=== PATIENT | female | born 1945 | race Caucasian/White ===

== ENCOUNTER 2017-05-23 07:28 | Inpatient (IN) | payer OTHER ==
[2017-04-25 13:03] VITALS: Ht 167.6 cm; Wt 82.8 kg
--- NOTE | 2017-04-25 13:42 | PAT Medication Instructions ---
Service Date Apr 25, 2017. Current Home Medication List Albuterol Hfa (Ventolin Hfa), Unknown Dose INH UD PRN for PRN Fluticasone Propionate (Flovent Hfa), Unknown Dose INH UD PRN for PRN Fluticasone Propionate (Nasal) (Allergy Nasal [place] [address] Ho), 1 SPRAY DOMENIC UD PRN for PRN Ibuprofen (Motrin), 600 MG PO UD PRN for Pain Ibuprofen-Diphenhydramine Citr (Ibuprofen Pm), 2 TAB PO HS Montelukast Sodium (Montelukast Sodium), 1 TAB PO HS Nasal Wash (Alkalol), 1 DOSE NA UD Medication Instructions For Your Scheduled Surgery -Follow your surgeon's instructions for: Ibuprofen (Motrin), 600 MG PO UD PRN for Pain Ibuprofen-Diphenhydramine Citr (Ibuprofen Pm), 2 TAB PO HS -Continue as directed: Nasal Wash (Alkalol), 1 DOSE NA UD - Take the following medications the morning of surgery with a sip of water: Albuterol Hfa (Ventolin Hfa), Unknown Dose INH UD PRN for PRN (if needed, and bring it with you to the hospital) Fluticasone Propionate (Flovent Hfa), Unknown Dose INH UD PRN for PRN (if needed ) Fluticasone Propionate (Nasal) (Allergy Nasal [place] [facility] Ho), 1 SPRAY DOMENIC UD PRN for PRN (if needed) - Take the following medications as scheduled the night before surgery: Montelukast Sodium (Montelukast Sodium), 1 TAB PO HS Albuterol Hfa (Ventolin Hfa), Unknown Dose INH UD PRN for PRN (if needed) Fluticasone Propionate (Flovent Hfa), Unknown Dose INH UD PRN for PRN (if needed ) Fluticasone Propionate (Nasal) (Allergy Nasal [place] [facility] Ho), 1 SPRAY DOMENIC UD PRN for PRN (if needed) If you have any questions please call us at [phone] or [phone] or [phone]
--- NOTE | 2017-04-25 14:44 | DIAGNOSTIC IMAGING REPORT ---
CHEST 2 VIEWS ROUTINE CLINICAL HISTORY: PAT preoperative evaluation COMPARISON STUDY: No previous studies for comparison. FINDINGS: The bones soft tissues and hemidiaphragms are normal. The cardiomediastinal silhouette is normal. The lungs are clear. The pulmonary vasculature is normal. IMPRESSION: Negative chest. The above report was generated using voice recognition software. It may contain grammatical, syntax or spelling errors. Electronically signed by: Romero Stewart M.D. 04/25/2017 2:43 PM Dictated Date/Time: 04/25/2017 2:42 PM
[2017-04-25 14:53] LABS: BASO % 0.2 %; BASO ABS # 0.01 K/uL (0-0.2); EOS % 3.1 %; EOS ABS # 0.15 K/uL (0-0.5); HEMOGLOBIN 14.2 g/dL (12.0-16.0); LYMPH % 26.1 %; LYMPH ABS # 1.25 K/uL (1.2-3.4); MEAN CELL VOLUME 92.9 fL (80-100); MEAN CORPUSCULAR HEMOGLOBIN 31.4 pg (25-34); MEAN CORPUSCULAR HGB CONC 33.8 g/dl (32-36); MEAN PLATELET VOLUME 10.9 fL (7.4-10.4); MONO % 5.8 %; MONO ABS # 0.28 K/uL (0.11-0.59); NEUT % 64.8 %; PLATELET COUNT 210 K/uL (130-400); RED CELL DISTRIBUTION WIDTH CV 13.2 % (11.5-14.5); RED CELL DISTRIBUTION WIDTH SD 44.4 fL (36.4-46.3); WHITE BLOOD COUNT 4.79 K/uL (4.8-10.8)
[2017-04-25 15:00] LABS: ALBUMIN 3.7 gm/dl (3.4-5.0); CALCIUM 9.9 mg/dl (8.5-10.1); CREATININE 0.54 mg/dl (0.60-1.20); POTASSIUM 4.2 mmol/L (3.5-5.1)
[2017-04-25 15:05] LABS: PTT PATIENT 27.5 SECONDS (21.0-31.0)
[2017-04-26 06:19] LABS: HEMOGLOBIN A1C 5.6 % (4.5-5.6)
--- NOTE | 2017-04-26 13:15 | HISTORY & PHYSICAL EXAMINATION ---
DATE OF ADMISSION: 05/23/2017 CHIEF COMPLAINT: Right knee pain. HISTORY OF PRESENT ILLNESS: Barbara is a 71-year-old female with a 12-year history of right knee pain. The patient rates her pain at 9/10. She has pain with her daily activities. She has limited standing and walking tolerance. Pain is worse with weightbearing. The patient has had injections, bracing, and NSAIDs without relief. She has failed conservative treatment and is scheduled for right knee replacement. PAST MEDICAL HISTORY: Asthma and sleep apnea. She denies heart disease, diabetes or DVT. PAST SURGICAL HISTORY: Hysterectomy and D&C. SOCIAL HISTORY: She denies alcohol or tobacco use. She lives in a 2-story home. She is and works as a hairdresser. FAMILY HISTORY: Negative for DVT. MEDICATIONS: ProAir HFA 90 mcg 2 puffs p.r.n., ibuprofen 200 mg p.r.n., Flovent HFA 44 mcg 2 puffs b.i.d., montelukast 10 mg daily, and fluticasone 50 mg. ALLERGIES: PENICILLIN CAUSED HIVES AT AGE 23. REVIEW OF SYSTEMS: See HPI. Also positive for chronic sinusitis. Otherwise negative. PHYSICAL EXAMINATION: VITAL SIGNS: Height 5 feet 6 inches, weight 184 pounds, and BMI is 30. GENERAL: This is a well-developed and well-nourished female who is alert and oriented x3. Mood and affect are appropriate. HEENT: Normocephalic and atraumatic. Mucous membranes are moist and intact. NECK: Supple without lymphadenopathy. HEART: Regular rate and rhythm without murmurs, rubs or gallops. LUNGS: Clear to auscultation without wheezes or rhonchi. ABDOMEN: Soft and nontender. Bowel sounds are equal and active. EXTREMITIES: No ecchymosis, redness or warmth. Thigh and calf are soft and nontender. She has a valgus deformity. Range of motion is from 0-110 degrees with no laxity. She has +1 edema. She has moderate effusion. She is neurovascularly intact. X-RAY EXAMINATION: AP and lateral views show joint space narrowing and osteophyte formation. IMPRESSION: Degenerative joint disease, right knee. PLAN: The patient will be admitted for a right total knee arthroplasty. We will plan on aspirin for DVT prophylaxis. She will likely have [facility] for home physical therapy. PCP is Dr. Dale in [place].
[~2017-05-23] VITALS: Ht 167.6 cm; Wt 82.8 kg
[2017-05-23] VITALS (9 sets, daily range): BP systolic 105–137; BP diastolic 65–88; PULSE 75–89; TEMP 36.4–36.8; O2SAT 93–99
[2017-05-23] MEDS: TRANEXAMIC ACID INJ 1,000 MG x 2 Bags IV SCH ×4 (06:30→10:01)
--- NOTE | 2017-05-23 06:55 | History & Physical Bridge Note ---
H&P Re-Evaluation Bridge Note: I have examined the patient, reviewed the History & Physical and in the interval since the performance of the History & Physical I have noted the following changes of clinical significance: No changes noted
[~2017-05-23 07:28] MED LIST: ACETAMINOPHEN 500 MG TAB PO SCH; BUPIVACAINE 0.25% 30 ML VIAL ONE; BUPIVACAINE 0.5 % 5 MG/1 ML PF 10ML VIAL ONE; CeleBREX 200 MG CAP PO SCH; DEXAMETHASONE 4 MG TAB PO SCH; FAMOTIDINE 20 MG TAB PO SCH; FLUT50SP45 NAE; FLVHFA110 INH; GABAPENTIN 300 MG CAP PO SCH; IBUP1TAB55 PO; IBUP600T44 PO; LACTATED RINGER'S 1000ML 1,000 ML IV SCH; LACTATED RINGER'S 1000ML 500 ML IV SCH; METOCLOPRAMIDE HCL 10 MG TAB PO SCH; MONT1TAB5 PO; ROPIVACAINE 5MG/ML 30 ML 150 MG, BUPIVACAINE 0.5% MPF INJ 30 ML, EpINEphrine HCL INJ 0.... INFIL SCH; VNTHFA/IN INH; [UNRECOGNIZED DRUG - CODE]
[2017-05-23] MEDS ORDERED: MIDAZOLAM HCL 1 MG/ML 2ML VIAL ONE (08:24)
[2017-05-23] MEDS ORDERED: BACITRACIN 50000 UNIT VIAL ONE (08:58)
[2017-05-23] MEDS ORDERED: POVIDONE-IODINE OP SOLN 30 ML BTL ONE (08:58)
[2017-05-23] MEDS ORDERED: ORTHO JOINT ANESTHETIC ONE (08:58)
[2017-05-23] MEDS ORDERED: NURSING VERBAL MED ORDER STA (09:31)
[2017-05-23] MEDS ORDERED: CLINDAMYCIN 600 MG/54 ML D5W IV ONE (09:32)
[2017-05-23] MEDS ORDERED: FENTANYL CITRATE INJ 50 MCG/1 ML 2 ML VIAL IV PRN (09:45)
[2017-05-23] MEDS ORDERED: ONDANSETRON INJ 2 MG/ML 2 ML VIAL IV PRN ×2 (09:45→12:15)
[2017-05-23] MEDS ORDERED: EpHEDrine SULFATE INJ 50 MG/ML AMP IV PRN (09:45)
[2017-05-23] MEDS ORDERED: ATROPINE SULFATE 0.1 MG/ML 5ML SYR IV PRN (09:45)
[2017-05-23] MEDS ORDERED: PROPOFOL IV EMULSION 10 MG/ML 20 ML VIAL IV ONE (10:31)
[2017-05-23] MEDS ORDERED: LIDOCAINE HCL 2% 2 ML VIAL (20MG/ML) ONE (10:33)
--- NOTE | 2017-05-23 11:19 | [facility] Post Operative Brief Note ---
Immediate Operative Summary Operative Date May 23, 2017. Pre-Operative Diagnosis Right knee degenerative joint disease Post-Operative Diagnosis Right knee degenerative joint disease Procedure(s) Performed Right total knee arthroplasty Surgeon Dr. Andre Care Director Surgeon(s) Romero Murphy PA-C Estimated Blood Loss 5ml Findings Consistent with Post-Op Diagnosis Specimens A. Right knee bone and tissue Anesthesia Type MAC Spinal Regional Complication(s) none Disposition Disposition: Recovery Room / PACU
--- NOTE | 2017-05-23 11:21 | [facility] Operative Report ---
Operative Report Operative Date May 23, 2017. Pre-Operative Diagnosis Right knee degenerative joint disease Post-Operative Diagnosis Right knee degenerative joint disease Procedure(s) Performed Right total knee arthroplasty utilizing [employer] journey to patient-matched total knee arthroplasty size 5 femur 5 tibia 13 Teresa [address] Andre Telecommunications Clerk Surgeon(s) Romero Murphy PA-C Estimated Blood Loss 5ml Findings Patient presents with severe end-stage DJD varus alignment subchondral cystic changes sclerosus marginal osteophytes large loss to conservative therapy including physical therapy anti-inflammatories Roto-Rest activity modification viscus supplementation corticosteroid injections presents for total knee arthroplasty Specimens A. Right knee bone and tissue Anesthesia Type MAC Spinal Regional Complication(s) none Disposition Recovery Room / PACU Indications Intraoperative findings were consistent with subchondral cystic changes sclerosus marginal osteophytes bone the bone eburnated bone with bone the bone varus alignment. Description of Procedure After proper prepping and draping of the Right lower extremity anterior midline incision was made over the region of the extensor extensor mechanism after meticulous hemostasis was obtained and maintained in subcutaneous tissues a medial parapatellar incision was made The patella was subluxed lateralward the medial lateral gutter were cleaned from any hypertrophic synovitis and scar tissue of the distal femoral block was placed and the distal femoral osteotomy cut was made subsequently the chamfers anterior and posterior osteotomy cuts were made utilizing the 4-in-1 block the tibia was subsequently subluxed anteriorward medial and ateral meniscal remnants were excised in their entirety remnants of the anterior and posterior cruciate ligaments were excised in their entirety excellent exposure of the proximal tibia was obtained the tibial osteotomy guide was placed on the proximal tibial osteotomy cut was made once again the knee was irrigated with copious amounts of sterile saline solution the patella was subsequently everted lateralward thickened scar tissue around the patella was removed the patella was subsequently cut utilizing a freehand technique and was drilled prepared for final preparation and placement of patella socially flexion-extension gaps were checked and the equal and symmetric trials were placed to the appropriate femoral and tibial trials with poly-spacer being placed for equal flexion and extension gaps and full range of motion including extension to 0 and flexion to 140 the trial components after having been taken to recovery range of motion was subsequently removed meticulous hemostasis was obtained and maintained subsequently a knee block injection of joint cocktail including ropivacaine 0.5% 150 mg. Bupivacaine 0.5 % epinephrine 1-200,030 mL's toradol 30 mg dexamethasone 4 mg ketamine 10 mg clonidine 100 micrograms normal saline solution 30 mg was infiltrated into the soft tissues of the posterior knee medial lateral gutters and periosteal synovium special attention was paid to protect neurovascular structures at all times subsequently trial components having been removed the knee was irrigated with sterile saline solution. debris was removed the proximal tibia was subsequently prepared and was made ready for the placement of the tibial component tibial component was also cemented and tamped into position the femoral component was subsequently placed and cemented in the position the patellar component was subsequently cemented in position because hemostasis once again obtained and maintained wound having been thoroughly irrigated with debridement and debridement lavage was performed as well as a medial parapatellar incision closed with #1 Vicryl in interrupted fashion subcutaneous was closed with #2 Vicryl skin was closed with skin clips. PA-C was necessary for prepping and drapping as well as wound closure of deep fascia Sub cutaneous tissue and skin and was necessary for the case. A sterile compressive dressing was placed patient was taken to recovery in stable condition of report dictated by Thai I attest to the content of the Intraoperative Record and any orders documented therein. Any exceptions are noted below. I attest to the content of the Intraoperative Record and any orders documented therein. Any exceptions are noted below.
[2017-05-23] MEDS ORDERED: KETOROLAC TROMETHAMINE 15 MG/ML VIAL IV. PRN (12:15)
[2017-05-23] MEDS ORDERED: ALUMINUM/MAGNESIUM/SIMETH (MAALOX MAX) 30 ML UDC PO PRN (12:15)
[2017-05-23] MEDS ORDERED: BISACODYL 10 MG SUPP PR PRN (12:15)
[2017-05-23] MEDS ORDERED: ZOLPIDEM TARTRATE 5 MG TAB PO PRN (12:15)
[2017-05-23] MEDS ORDERED: MoRPHine SULFATE 2 MG/ML CARP IV PRN (12:15)
[2017-05-23] MEDS ORDERED: MAGNESIUM HYDROXIDE SUSP 30 ML UDC PO PRN (12:15)
[2017-05-23] MEDS ORDERED: SOD PHOSPHATE/SOD BIPHOSPHATE ENEMA 132 ML BTL PR PRN (12:15)
--- NOTE | 2017-05-23 12:34 | Anesthesiology Progress Note ---
Anesthesia Post Op Note Date & Time May 23, 2017 at 12:33 Vital Signs Pain Intensity: 0 Vital Signs Past 12 Hours Date Time Temp Pulse Resp B/P (MAP) Pulse Ox O2 Delivery O2 Flow Rate FiO2 05/23/17 12:25 36.6 82 16 120/80 96 Nasal Cannula 2 05/23/17 12:15 77 16 106/77 96 Nasal Cannula 2 05/23/17 12:05 87 16 111/74 98 Oxymask 10 05/23/17 11:59 37.0 87 16 106/73 97 Oxymask 10 05/23/17 09:12 36.5 83 18 137/88 96 Room Air Notes Mental Status: alert / awake / arousable, participated in evaluation Pt Amnestic to Procedure: Yes Nausea / Vomiting: adequately controlled Pain: adequately controlled Airway Patency, RR, SpO2: stable & adequate BP & HR: stable & adequate Hydration State: stable & adequate Neuraxial Anesthesia: was administered, sensory block is resolving Anesthetic Complications: no major complications apparent
--- NOTE | 2017-05-23 12:49 | DIAGNOSTIC IMAGING REPORT ---
R KNEE 1 OR 2 VIEWS ROUTINE CLINICAL HISTORY: AP/LATERAL IN PACU RIGHT KNEE knee arthroplasty COMPARISON: None. DISCUSSION: Anatomic alignment status post total right knee arthroplasty. Good contact between prosthetic and underlying bone. Expected soft tissue postoperative change. IMPRESSION: Anatomic alignment status post total right knee arthroplasty. The above report was generated using voice recognition software. It may contain grammatical, syntax or spelling errors. Electronically signed by: Romero Stewart M.D. 05/23/2017 12:48 PM Dictated Date/Time: 05/23/2017 12:47 PM
[2017-05-23] MEDS ORDERED: MoRPHine SULFATE 4 MG/ML 1 ML CARP\\VIAL IV PRN (13:15)
[2017-05-23] MEDS ORDERED: MoRPHine SULFATE 10 MG/ML CARP/VIAL IV PRN (13:15)
[2017-05-23] MEDS ORDERED: FLUTICASONE PROPIONATE NA SPR 16 GM BTL NAE PRN (13:30)
[2017-05-23] MEDS: D5W AND 1/2NSS + 20MEQ KCL 1,000 ML IV SCH (15:59)
[2017-05-23] MEDS: ACETAMINOPHEN 500 MG TAB PO SCH (17:04)
[2017-05-23] MEDS: CLINDAMYCIN IV 600 MG in DEXTROSE 5% 50ML 50 ML IV SCH (17:34)
[2017-05-23] MEDS: SENNA 8.6 MG TAB PO SCH (21:19)
[2017-05-23] MEDS: MONTELUKAST SOD 10 MG TAB PO SCH (21:20)
[2017-05-23] MEDS: ASPIRIN 81 MG ECTAB PO SCH (21:20)
[2017-05-23] MEDS: FLUTICASONE HFA 110MCG INHALER INH SCH ×2 (21:21→21:23)
[2017-05-23] MEDS: DOCUSATE SODIUM 100 MG CAP PO SCH (21:21)
[2017-05-24] MEDS: ACETAMINOPHEN 500 MG TAB PO SCH ×3 (00:27→18:20)
[2017-05-24] MEDS: D5W AND 1/2NSS + 20MEQ KCL 1,000 ML IV SCH ×2 (02:36→09:30)
[2017-05-24] MEDS: CLINDAMYCIN IV 600 MG in DEXTROSE 5% 50ML 50 ML IV SCH (02:44)
[2017-05-24 03:28] VITALS: BP 106/67; PULSE 71; TEMP 36.9; O2SAT 94
[2017-05-24 05:55] LABS: HEMATOCRIT 36.5 % (37-47); HEMOGLOBIN 12.2 g/dL (12.0-16.0); MEAN CELL VOLUME 91.9 fL (80-100); MEAN CORPUSCULAR HEMOGLOBIN 30.7 pg (25-34); MEAN CORPUSCULAR HGB CONC 33.4 g/dl (32-36); MEAN PLATELET VOLUME 10.1 fL (7.4-10.4); PLATELET COUNT 186 K/uL (130-400); RED CELL DISTRIBUTION WIDTH SD 43.5 fL (36.4-46.3); WHITE BLOOD COUNT 14.36 K/uL (4.8-10.8)
[2017-05-24 06:08] LABS: INR 1.1 (0.9-1.1)
[2017-05-24 06:46] LABS: CALCIUM 9.1 mg/dl (8.5-10.1); CREATININE 0.62 mg/dl (0.60-1.20); POTASSIUM 4.4 mmol/L (3.5-5.1)
[2017-05-24 07:37] VITALS: BP 128/85; PULSE 91; TEMP 36.8; O2SAT 94
[2017-05-24] MEDS: MULTIVITAMIN TAB PO SCH (07:54)
[2017-05-24] MEDS: PANTOprazole SOD 40 MG TAB PO SCH (07:54)
[2017-05-24] MEDS: ASPIRIN 81 MG ECTAB PO SCH ×2 (07:55→21:00)
[2017-05-24] MEDS: DOCUSATE SODIUM 100 MG CAP PO SCH ×2 (07:55→21:00)
[2017-05-24] MEDS: TRAMADOL HCL 50 MG TAB PO PRN ×2 (07:56→13:55)
--- NOTE | 2017-05-24 08:15 | Orthopedic Progress Note ---
Orthopedic Progress Note Date of Service May 24, 2017. Subjective Post OP Day: 1 Reports: feeling well, Denies: chest pain, SOB, nausea / vomiting, light headedness, calf pain Objective calves soft nontender, N/V intact, capillary refill less than 2 sec., dressing C /D/I, A&O x3, toes mobile, hemovac drainage (185/125CC PER SHIFT) Date Time Temp Pulse Resp B/P (MAP) Pulse Ox O2 Delivery O2 Flow Rate FiO2 05/24/17 07:37 36.8 91 18 128/85 (99) 94 Room Air 05/24/17 03:28 36.9 71 16 106/67 (80) 94 Room Air 05/23/17 23:46 36.7 77 16 108/71 (83) 93 Room Air 05/23/17 19:10 Room Air 05/23/17 19:05 36.8 89 18 105/65 (78) 93 Room Air 05/23/17 16:04 36.4 88 18 118/77 (91) 95 Nasal Cannula 3.0 05/23/17 15:02 36.4 86 18 113/76 (88) 95 Nasal Cannula 3.0 05/23/17 14:50 Nasal Cannula 2.0 05/23/17 13:46 36.7 76 18 108/74 (85) 95 Nasal Cannula 3.0 05/23/17 13:17 75 16 109/77 (88) 96 3.0 05/23/17 12:54 96 Nasal Cannula 2.0 05/23/17 12:51 36.6 85 17 116/77 (90) 97 Nasal Cannula 2.0 05/23/17 12:50 99 Nasal Cannula 2.0 05/23/17 12:35 36.6 82 16 110/77 96 Nasal Cannula 2 05/23/17 12:25 36.6 82 16 120/80 96 Nasal Cannula 2 05/23/17 12:15 77 16 106/77 96 Nasal Cannula 2 05/23/17 12:05 87 16 111/74 98 Oxymask 10 05/23/17 11:59 37.0 87 16 106/73 97 Oxymask 10 05/23/17 09:12 36.5 83 18 137/88 96 Room Air Laboratory Results 24 Hours: Test 05/24/17 05:39 Hematocrit 36.5 % Hemoglobin 12.2 g/dL Prothromb Time International Ratio 1.1 Prothrombin Time 11.1 SECONDS Assessment & Plan Assessment: PT/OT DVT PROPH- ASA 81MG BID PAIN MANAGEMENT DC PLANNING- LIKELY DC WITH HOME PT TOMORROW.
--- NOTE | 2017-05-24 10:24 | Anesthesiology Progress Note ---
Anesthesia Post Op Note Date & Time May 24, 2017 at 10:24 Vital Signs Vital Signs Past 12 Hours Date Time Temp Pulse Resp B/P (MAP) Pulse Ox O2 Delivery O2 Flow Rate FiO2 05/24/17 07:37 36.8 91 18 128/85 (99) 94 Room Air 05/24/17 07:35 Room Air 05/24/17 03:28 36.9 71 16 106/67 (80) 94 Room Air 05/23/17 23:46 36.7 77 16 108/71 (83) 93 Room Air Notes Mental Status: alert / awake / arousable, participated in evaluation Pt Amnestic to Procedure: Yes Nausea / Vomiting: adequately controlled Pain: adequately controlled Airway Patency, RR, SpO2: stable & adequate BP & HR: stable & adequate Hydration State: stable & adequate Neuraxial Anesthesia: sensory block resolved Anesthetic Complications: no major complications apparent
[2017-05-24 15:35] VITALS: BP 105/68; PULSE 80; TEMP 36.4; O2SAT 97
[2017-05-24] MEDS: OXYCODONE HCL IR 5 MG TAB (IMMEDIATE RELEASE) PO PRN ×2 (16:12→20:55)
--- NOTE | 2017-05-24 17:04 | Discharge Instructions ---
Discharge Instructions Date of Service May 24, 2017. Admission Reason for Admission: Right Knee Osteoarthritis Discharge Discharge Diagnosis / Problem: right total knee replacement Discharge Goals Goal(s): Decrease discomfort, Improve function, Increase independence Activity Recommendations Activity Limitations: as noted below Weightbearing Status: Right weightbearing (as tolerated) . Instructions / Follow-Up Instructions / Follow-Up ACTIVITY RECOMMENDATIONS: SELF CARE INSTRUCTIONS AFTER TOTAL KNEE REPLACEMENT A. You may need to continue a physical therapy program after discharge from the hospital. There are several options available to you. Your doctor will assist you in selecting the best one for you. 1. An out-patient facility 2 to 3 times a week for therapy or home therapy. 2. Continue working on all exercises taught to you in the hospital. Your goals should be to increase bending of your knee to 90 degrees and beyond and to fully straighten your knee. B. You may progress at your own pace from walking with a walker or crutches to a cane; then to no assistive devices. C. Make walking a part of your daily routine. Be up as much as comfortable with rest periods throughout the day. Rest with leg elevation is very important. Use the ice wrap frequently for the first 3-4 weeks. D. There are no restrictions on activities. You may ride in a car, shop, participate in meat sales and storage manager and all social activities. E. Wear the long elastic stockings (JUAN ALBERTO hose) 20 hours a day for 2 weeks after surgery. They can be removed several times a day for laundering and for a bath. F. You may shower, no tub baths until cleared by your doctor. SPECIAL CARE INSTRUCTIONS: VERY IMPORTANT TO READ AND REVIEW A. There are a few signs you need to watch for after you are home. Call [facility] if you notice any of the followin. Increased severe knee pain. Some pain is expected especially when you exercise. 2. Increased swelling in your leg or knee; pain or swelling of the calf muscle in either lower leg. 3. Any fluid drainage from the incision. 4. Shortness of breath or chest pain. B. Please call [facility] at if you have any concerns or questions about your operation or recovery. The doctor or his nurse will return your call promptly. C. You must take antibiotics before dental work, bladder, bowel or other surgery. Your doctor will provide you with a permanent care to carry describing this precaution. IMPORTANT: * REMEMBER TO TAKE ASPIRIN, 81 MG, TWICE DAILY FOR 4 WEEKS UNLESS OTHERWISE DIRECTED. THIS IS YOUR BLOOD THINNER. * HIGH RISK PATIENTS MAY BE PRESCRIBED A STRONGER BLOOD THINNER. THIS WILL BE PROVIDED AT DISCHARGE. * CALL IF INCREASED PAIN, REDNESS, DRAINAGE OR FEVER GREATER THAT 101. * WEAR JUAN ALBERTO HOSE 20 HOURS PER DAY FOR 2 WEEKS. * DERMABOND Prineo- This is a mesh tape dressing that is covered with glue. It should remain in place until the incision is properly healed, usually 10-14 days. This dressing is designed to naturally slough off. You may trim the excess mesh tape as it peels off. Incision may be briefly wet in a shower. Dry immediately by blotting with a clean, dry towel. Do not bath or swim until instructed by your doctor. Do not scratch, rub, or pick at the dressing. Do not apply any topical ointments or lotions until dressing is completely removed and/or instructed by your doctor. There may be a small piece of suture material at one end of your incision. Do not pull or trim this. If it is bothersome or catching on clothing, you may cover it with a band-aid. FOLLOW UP VISIT: If appointment is not already scheduled: Please call [facility] to make a follow-up appointment for 2 weeks after your surgery at . Current Hospital Diet Patient's current hospital diet: Regular Diet Discharge Diet Recommended Diet: Regular Diet Procedures Procedures Performed: Right total knee arthroplasty utilizing [employer] journey to patient-matched total knee arthroplasty size 5 femur 5 tibia 13 Teresa 32 oval patella Pending Studies Studies pending at discharge: no Laboratory Results Hemoglobin A1c Test 04/25/17 13:52 Range/Units Estimated Average Glucose 114 mg/dl Hemoglobin A1c 5.6 4.5-5.6 % Medical Emergencies . Who to Call and When: Medical Emergencies: If at any time you feel your situation is an emergency, please call 911 immediately. . Non-Emergent Contact Non-Emergency issues call your: Primary Care Provider, Surgeon . "Provider Documentation" section prepared by Romero Murphy. . VTE Core Measure Inpt VTE Proph given/why not?: Other Anticoagulation (ASA 81mg po bid x 1 month ), T.E.Francisca Chinchilla, SCD's [place] Drug Monitoring Program Search Results: patient reviewed within database, no issues identified
[2017-05-24] MEDS: FLUTICASONE HFA 110MCG INHALER INH SCH (20:57)
[2017-05-24] MEDS: CeleBREX 200 MG CAP PO SCH (21:00)
[2017-05-24] MEDS: SENNA 8.6 MG TAB PO SCH (21:00)
[2017-05-24] MEDS: MONTELUKAST SOD 10 MG TAB PO SCH (21:00)
[2017-05-24 22:59] VITALS: BP 114/71; PULSE 76; TEMP 36.6; O2SAT 92
[2017-05-25] MEDS: ACETAMINOPHEN 500 MG TAB PO SCH ×2 (00:49→09:50)
[2017-05-25] MEDS: OXYCODONE HCL IR 5 MG TAB (IMMEDIATE RELEASE) PO PRN ×3 (01:16→10:18)
[2017-05-25 06:07] VITALS: BP 104/70; PULSE 86; TEMP 36.5; O2SAT 90
--- NOTE | 2017-05-25 07:18 | Orthopedic Progress Note ---
Orthopedic Progress Note Date of Service May 25, 2017. Subjective Post OP Day: 2 Reports: feeling well, Denies: complaints, chest pain, SOB, nausea / vomiting, light headedness, calf pain Additional Notes: having increased pain this am Objective calves soft nontender, N/V intact, capillary refill less than 2 sec., dressing C /D/I, A&O x3, toes mobile Date Time Temp Pulse Resp B/P (MAP) Pulse Ox O2 Delivery O2 Flow Rate FiO2 05/25/17 06:07 36.5 86 16 104/70 (81) 90 Room Air 05/25/17 00:15 Room Air 05/24/17 22:59 36.6 76 16 114/71 (85) 92 Room Air 05/24/17 16:00 Room Air 05/24/17 15:35 36.4 80 18 105/68 (80) 97 Room Air 05/24/17 11:15 Room Air 05/24/17 07:37 36.8 91 18 128/85 (99) 94 Room Air 05/24/17 07:35 Room Air Assessment & Plan Assessment: PT/OT DVT PROPH- ASA 81MG BID PAIN MANAGEMENT will recheck after PT for possible discharge today, having increased pain this am Discharge Planning Discharge Planning: home with oppt DVT Prophylaxis: TEDs, SCDs, ASA
[2017-05-25] MEDS ORDERED: ASPEC81 PO (07:23)
[2017-05-25] MEDS ORDERED: CLC100 PO (07:23)
[2017-05-25] MEDS ORDERED: CLB200 PO (07:23)
[2017-05-25] MEDS ORDERED: RXC5 PO (07:23)
[2017-05-25] MEDS ORDERED: ONDA8TAB6 PO (07:23)
[2017-05-25] MEDS ORDERED: ACET-24 PO (07:23)
[2017-05-25] MEDS ORDERED: ULT50X PO (07:23)
--- NOTE | 2017-05-25 07:28 | Discharge Summary ---
Orthopedic Discharge Summary Admission Date/Reason May 23, 2017 at 08:20 Right Knee Osteoarthritis. Discharge Date/Disposition May 25, 2017 Home with services Diagnosis Principal Diagnosis: right knee osteoarthritis Procedure(s) Performed Right total knee arthroplasty utilizing [employer] to patient-matched total knee arthroplasty size 5 femur 5 tibia 13 Teresa 32 oval patella Consultations NONE Medication Reconciliation New Medications: Ondansetron Hcl (Zofran) 8 Mg Tab 8 MG PO Q8 PRN for Nausea, #20 TAB Acetaminophen (Sb Non-Aspirin Extra Stre) 500 Mg Tab 1000 MG PO Q8H, #63 TAB Aspirin (Aspirin EC Low Dose) 81 Mg Ectab 81 MG PO BID for 30 Days, #60 TAB Celecoxib (Celebrex) 200 Mg Cap 200 MG PO BID for 30 Days, #60 CAP Docusate Sodium (Docusate Sodium) 100 Mg Cap 100 MG PO BID for 10 Days, #20 CAP Oxycodone HCl (Oxycodone HCl) 5 Mg Tab 5-10 MG PO Q4H PRN for Pain, #60 TAB Tramadol HCl (Tramadol HCl) 50 Mg Tab 50-100 MG PO Q4H PRN for Pain, #60 TAB Continued Medications: Albuterol Hfa (Ventolin Hfa) Unknown Strength Aers Unknown Dose INH UD PRN for PRN, #1 INHALER Fluticasone Propionate (Flovent Hfa) Unknown Strength Aero Unknown Dose INH UD PRN for PRN for 30 Days, #1 INHALER 3 Refills Fluticasone Propionate (Nasal) (Allergy Nasal [place] 24 Ho) 50 Mcg/Act Spr 1 SPRAY DOMENIC UD PRN for PRN Montelukast Sodium (Montelukast Sodium) 10 Mg Tab 1 TAB PO HS for 90 Days, TAB 3 Refills Nasal Wash (Alkalol) 1 Joaquina Joaquina 1 DOSE NA UD Discontinued Medications: Ibuprofen (Motrin) 600 Mg Tab 600 MG PO UD PRN for Pain, TAB Ibuprofen-Diphenhydramine Citr (Ibuprofen Pm) 1 Tab Tab 2 TAB PO HS Admission Physical Exam As per Admitting History & Physical. Hospital Course Patient was a same day admission after undergoing a successful right TKA. she tolerated the procedure well. Post-operatively, her activity was progressed and well tolerated. Please refer to daily progress notes and PT notes for complete details. After exam on 05/25/17, patient felt to be stable for discharge home with HHPT. Patient will f/u in the office in 2 weeks for further evaluation including x-rays and incision check, sooner if having any issues or concerns. Below are pertinent labs/studies during their hospital stay: Last Vital Signs Documentation Date Time Temp Pulse Resp B/P (MAP) Pulse Ox O2 Delivery O2 Flow Rate FiO2 05/25/17 06:07 36.5 86 16 104/70 (81) 90 Room Air 05/23/17 16:04 3.0 Last Resulted CBC 05/24/17 05:39 Last Resulted BMP 05/24/17 05:39 Discharge Instructions ACTIVITY RECOMMENDATIONS: SELF CARE INSTRUCTIONS AFTER TOTAL KNEE REPLACEMENT A. You may need to continue a physical therapy program after discharge from the hospital. There are several options available to you. Your doctor will assist you in selecting the best one for you. 1. An out-patient facility 2 to 3 times a week for therapy or home therapy. 2. Continue working on all exercises taught to you in the hospital. Your goals should be to increase bending of your knee to 90 degrees and beyond and to fully straighten your knee. B. You may progress at your own pace from walking with a walker or crutches to a cane; then to no assistive devices. C. Make walking a part of your daily routine. Be up as much as comfortable with rest periods throughout the day. Rest with leg elevation is very important. Use the ice wrap frequently for the first 3-4 weeks. D. There are no restrictions on activities. You may ride in a car, shop, participate in director of workforce development and all social activities. E. Wear the long elastic stockings (JUAN ABLERTO hose) 20 hours a day for 2 weeks after surgery. They can be removed several times a day for laundering and for a bath. F. You may shower, no tub baths until cleared by your doctor. SPECIAL CARE INSTRUCTIONS: VERY IMPORTANT TO READ AND REVIEW A. There are a few signs you need to watch for after you are home. Call [facility] if you notice any of the followin. Increased severe knee pain. Some pain is expected especially when you exercise. 2. Increased swelling in your leg or knee; pain or swelling of the calf muscle in either lower leg. 3. Any fluid drainage from the incision. 4. Shortness of breath or chest pain. B. Please call [facility] at if you have any concerns or questions about your operation or recovery. The doctor or his nurse will return your call promptly. C. You must take antibiotics before dental work, bladder, bowel or other surgery. Your doctor will provide you with a permanent care to carry describing this precaution. IMPORTANT: * REMEMBER TO TAKE ASPIRIN, 81 MG, TWICE DAILY FOR 4 WEEKS UNLESS OTHERWISE DIRECTED. THIS IS YOUR BLOOD THINNER. * HIGH RISK PATIENTS MAY BE PRESCRIBED A STRONGER BLOOD THINNER. THIS WILL BE PROVIDED AT DISCHARGE. * CALL IF INCREASED PAIN, REDNESS, DRAINAGE OR FEVER GREATER THAT 101. * WEAR JUAN ALBERTO HOSE 20 HOURS PER DAY FOR 2 WEEKS. * DERMABOND Prineo- This is a mesh tape dressing that is covered with glue. It should remain in place until the incision is properly healed, usually 10-14 days. This dressing is designed to naturally slough off. You may trim the excess mesh tape as it peels off. Incision may be briefly wet in a shower. Dry immediately by blotting with a clean, dry towel. Do not bath or swim until instructed by your doctor. Do not scratch, rub, or pick at the dressing. Do not apply any topical ointments or lotions until dressing is completely removed and/or instructed by your doctor. There may be a small piece of suture material at one end of your incision. Do not pull or trim this. If it is bothersome or catching on clothing, you may cover it with a band-aid. FOLLOW UP VISIT: If appointment is not already scheduled: Please call [facility] to make a follow-up appointment for 2 weeks after your surgery at .
[2017-05-25] MEDS: FLUTICASONE HFA 110MCG INHALER INH SCH (09:00)
[2017-05-25] MEDS: CeleBREX 200 MG CAP PO SCH (09:49)
[2017-05-25] MEDS: DOCUSATE SODIUM 100 MG CAP PO SCH (09:50)
[2017-05-25] MEDS: MULTIVITAMIN TAB PO SCH (09:50)
[2017-05-25] MEDS: PANTOprazole SOD 40 MG TAB PO SCH (09:50)
[2017-05-25] MEDS: ASPIRIN 81 MG ECTAB PO SCH (09:51)
[2017-05-25] MEDS: TRAMADOL HCL 50 MG TAB PO PRN (12:09)
[2017-05-25 12:28] VITALS: BP 104/70; PULSE 86; TEMP 36.5; O2SAT 90
[2017-05-25 12:50] VITALS: O2SAT 98
== END 2017-05-25 13:15 | disposition home health service (06) | DRG 470 ==
LOC: C.ACU 07:28 → C.3E 08:20 → ENRESERV 12:31
PROVIDERS: ADMIT Orthopaedic Surgery; ATTEND Orthopaedic Surgery
PROC: 0SRC0J9 Replacement of Right Knee Joint with Synthetic Substitute, Cemented, Open Approach (ICD-10-PCS; principal; 2017-05-23 10:15)
DX: M17.11 Unilateral primary osteoarthritis, right knee (principal); J45.909 Unspecified asthma, uncomplicated; G47.33 Obstructive sleep apnea (adult) (pediatric); J32.9 Chronic sinusitis, unspecified; Z79.1 Long term (current) use of non-steroidal anti-inflammatories (NSAID); Z79.51 Long term (current) use of inhaled steroids; Z79.899 Other long term (current) drug therapy; Z88.0 Allergy status to penicillin; Z87.891 Personal history of nicotine dependence; Z85.42 Personal history of malignant neoplasm of other parts of uterus; Z90.710 Acquired absence of both cervix and uterus; Z92.3 Personal history of irradiation